=== PATIENT | female | born 1935 ===

== ENCOUNTER 2018-08-17 16:15 | Emergency (ER) | payer MEDICARE ==
[2018-08-17 16:34] VITALS: BP 148/53
[2018-08-17] MEDS ORDERED: Acetaminophen TAB* 325 MG PO ONE (16:46)
--- NOTE | 2018-08-17 16:54 | UC ---
Elbow Pain - HPI Summary HPI Summary: 83 yo female fell this AM c/o left elbow >left shoulder pain denies other injury no GARCIA or neck pain - History of Current Complaint Chief Complaint: UCUpperExtremity Stated Complaint: LEFT ARM AND SHUOULDER INJURY Time Seen by Provider: 08/17/18 16:25 Hx Obtained From: Patient Onset/Duration: Hours Severity Initially: Moderate Severity Currently: Mild Pain Intensity: 4 Pain Scale Used: 0-10 Numeric Location Of Pain: Is Discrete @ - see image Character: Dull, Aching Aggravating Factor(s): Movement Alleviating Factor(s): Rest Associated Signs And Symptoms: Positive: Swelling Body - Head: 1 - tender/swollen, unable to fully extend 2 - tender, unable to abduct >90 degrees - Allergies/Home Medications Allergies/Adverse Reactions: Allergies Allergy/AdvReac Type Severity Reaction Status Date / Time amoxicillin Allergy Unknown Verified 08/17/18 16:36 Reaction Details fentanyl Allergy Nausea Verified 08/17/18 16:36 lisinopril [From Prinivil] Allergy Hives Verified 08/17/18 16:34 metformin [From Glucophage] Allergy Nausea Verified 08/17/18 16:36 methotrexate Allergy Shortness Verified 08/17/18 16:36 of Breath sulfamethoxazole Allergy Nausea Verified 08/17/18 16:36 Home Medications: Home Medications Aspirin 81 mg PO DAILY 08/17/18 [History Confirmed 08/17/18] Atorvastatin* [Lipitor*] 80 mg PO DAILY 08/17/18 [History Confirmed 08/17/18] Calcium Citrate [Calcitrate] DAILY 08/17/18 [History] Ferrous Sulfate 325 mg PO DAILY 08/17/18 [History Confirmed 08/17/18] Furosemide 20 mg PO DAILY 08/17/18 [History Confirmed 08/17/18] Gabapentin 300 mg PO QID WITH FOOD 08/17/18 [History Confirmed 08/17/18] Levothyroxine Sodium 88 mcg PO DAILY 08/17/18 [History Confirmed 08/17/18] Metoprolol Succinate [Metoprolol Succinate ER] mg PO DAILY 08/17/18 [History] Omeprazole 20 mg PO DAILY 08/17/18 [History Confirmed 08/17/18] Valsartan 160 mg PO DAILY 08/17/18 [History Confirmed 08/17/18] amLODIPine TAB* [Norvasc 5 mg TAB*] 5 mg PO DAILY 08/17/18 [History Confirmed ] oxyCODONE/Acetamin 5/325 MG* [Percocet 5/325 TAB*] 08/17/18 [History] PMH/Surg Hx/FS Hx/Imm Hx Previously Healthy: Yes - psoriatic arthritis Cardiovascular History: Cardiac Disease - Surgical History Surgical History: Yes Surgery Procedure, Year, and Place: 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, hysterectomy, bypass surgery 2015, gallbladder removed - Family History Known Family History: Positive: Hypertension - Social History Alcohol Use: None Substance Use Type: None Smoking Status (MU): Never Smoked Tobacco Review of Systems All Other Systems Reviewed And Are Negative: Yes Constitutional: Positive: Negative Skin: Positive: Negative Eyes: Positive: Negative ENT: Positive: Negative Respiratory: Positive: Negative Cardiovascular: Positive: Negative Gastrointestinal: Positive: Negative Genitourinary: Positive: Negative Motor: Positive: Negative Neurovascular: Positive: Negative Musculoskeletal: Positive: Arthralgia, Decreased ROM Neurological: Positive: Negative Psychological: Positive: Negative Physical Exam Triage Information Reviewed: Yes Appearance: Well-Appearing, No Pain Distress, Well-Nourished Vital Signs: Initial Vital Signs Temp 98.0 F 08/17/18 16:26 Pulse 50 08/17/18 16:26 Resp 18 08/17/18 16:26 BP 148/53 08/17/18 16:26 Pulse Ox 98 08/17/18 16:26 Eyes: Positive: Conjunctiva Clear ENT: Positive: Hearing grossly normal. Negative: Nasal congestion, Nasal drainage, Trismus, Muffled voice, Hoarse voice Neck: Positive: Supple, Nontender Respiratory: Positive: Lungs clear, Normal breath sounds, No respiratory distress Cardiovascular: Positive: RRR, No Murmur Musculoskeletal: Positive: ROM Limited @ - left elbow, Other: - deformities of all finger (psoriatic arthropathy) Neurological: Positive: Alert Psychological Exam: Normal Skin Exam: Normal Procedures - Splinting Left Upper Extremity Location: Fx Left prox ulna Hand-Made Type: orthoglass Splint: posterior Pre-Proc Neuro Vasc Exam: normal Post-Proc Neuro Vasc Exam: normal Diagnostics - Radiology No standard instances Radiology Interpretation Completed By: Radiologist Summary of Radiographic Findings: elbow-SLIGHTLY DISPLACED FRACTURE OF THE PROXIMAL ULNA. Elbow Pain Course/Dx - Course Course Of Treatment: splint applied by MD - Differential Dx/Diagnosis Provider Diagnosis: Fracture of left proximal ulna Discharge - Sign-Out/Discharge Documenting (check all that apply): Patient Departure All imaging exams completed and their final reports reviewed: Yes - Discharge Plan Condition: Stable Disposition: HOME Patient Education Materials: Elbow Fracture (ED) Referrals: Mt Pickering MD [Medical Doctor] - As Soon As Possible Additional Instructions: splint and sling --- BONES: There is a slightly displaced fracture of the proximal ulna with articular extension --- - Billing Disposition and Condition Condition: STABLE Disposition: Home
== END 2018-08-17 17:38 | disposition home or self-care (01) ==
LOC: UCCORT 16:15
DX: S52.002A Unspecified fracture of upper end of left ulna, initial encounter for closed fracture (principal); W19.XXXA Unspecified fall, initial encounter; Y92.9 Unspecified place or not applicable; M19.012 Primary osteoarthritis, left shoulder; M85.812 Other specified disorders of bone density and structure, left shoulder; L40.50 Arthropathic psoriasis, unspecified; I51.9 Heart disease, unspecified; Z95.1 Presence of aortocoronary bypass graft; Z96.611 Presence of right artificial shoulder joint; Z88.5 Allergy status to narcotic agent; Z88.0 Allergy status to penicillin; Z88.2 Allergy status to sulfonamides; Z88.8 Allergy status to other drugs, medicaments and biological substances
CPT/HCPCS: 99213; A9270-GY; G0463